=== PATIENT | male | born 1955 ===

== ENCOUNTER 2022-08-16 07:34 | Day surgery (SDC) | payer OTHER ==
[~2022-08-16] VITALS: Ht 157.5 cm; Wt 99.8 kg
[~2022-08-16 07:34] MED LIST: ATORVASTATIN CA80 MG PO; BRILLINTA PO; CIALIS5 MG PO; DILTIAZEM ER240 M2 PO; DIOVAN320 MG PO; ESOMEPRAZOLE MA40 MG PO
[2022-08-16] MEDS ORDERED: PREVACID30 MG PO (10:57)
== END 2022-08-16 13:05 | disposition home or self-care (01) ==
LOC: CIR.AMB 07:34
PROVIDERS: ATTEND Otolaryngology Otology & Neurotology
DX: J38.1 Polyp of vocal cord and larynx (principal); I10 Essential (primary) hypertension; I25.10 Atherosclerotic heart disease of native coronary artery without angina pectoris; Z95.5 Presence of coronary angioplasty implant and graft; J45.909 Unspecified asthma, uncomplicated; G47.33 Obstructive sleep apnea (adult) (pediatric); Z99.89 Dependence on other enabling machines and devices